=== PATIENT | female | born 1950 | race Caucasian/White ===

== ENCOUNTER 2024-02-19 06:50 | Day surgery (SDC) | payer MEDICARE, OTHER ==
[~2024-02-19 06:50] MED LIST: Lactated Ringers 1,000 ML IV SCH; Sodium Chloride 0.9% 10 ML Syringe FLUSH PRN; Sodium Chloride 0.9% 10 ML Syringe FLUSH SCH
[2024-02-19] MEDS: Lactated Ringers 1,000 ML IV SCH (07:15)
[2024-02-19] MEDS ORDERED: Propofol 200 MG/20 ML SDV ONE ×2 (07:43→09:34)
[2024-02-19] MEDS ORDERED: Ketamine 200 MG/20 ML MDV ONE (07:43)
[2024-02-19] MEDS ORDERED: Midazolam 1 MG/ML 2 ML SDV ONE (07:43)
== END 2024-02-19 10:45 | disposition home or self-care (01) ==
LOC: JD.SDS 06:50
PROVIDERS: ATTEND Surgery
DX: K62.1 Rectal polyp (principal); K31.819 Angiodysplasia of stomach and duodenum without bleeding; K44.9 Diaphragmatic hernia without obstruction or gangrene; J44.9 Chronic obstructive pulmonary disease, unspecified; K57.30 Diverticulosis of large intestine without perforation or abscess without bleeding; K21.9 Gastro-esophageal reflux disease without esophagitis; F32.A Depression, unspecified; E78.00 Pure hypercholesterolemia, unspecified; Z87.891 Personal history of nicotine dependence; Z79.82 Long term (current) use of aspirin; Z79.899 Other long term (current) drug therapy; Z91.040 Latex allergy status
CPT/HCPCS: 43239; 45380; J2250; J2704; J7120; 00813; 88305; 99100; J3490